=== PATIENT | female | born 1940 | race Caucasian/White ===

== ENCOUNTER → 2020-03-24 | Day surgery (SDC) | payer MEDICARE ==
[2020-03-20 12:01] LABS: BASOPHILS # (AUTO) 0.1 (0.0-0.1); BASOPHILS % 0.6 % (0.0-1.0); EOSINOPHILS # (AUTO) 0.2 (0.0-0.4); EOSINOPHILS % 2.5 % (0.0-6.0); HEMATOCRIT 42.3 % (34.2-44.1); HEMOGLOBIN 13.6 g/dL (12.0-16.0); LYMPHOCYTES # (AUTO) 1.9 (1.0-3.2); LYMPHOCYTES % 19.9 % (18.0-39.1); MEAN CORPUSCULAR HEMOGLOBIN 27.8 pg (28-32); MEAN CORPUSCULAR HGB CONC 32.2 g/dL (31-35); MEAN CORPUSCULAR VOLUME 86.3 fL (81-99); MONOCYTES # (AUTO) 0.7 (0.2-0.8); NEUTROPHILS # (AUTO) 6.5 (2.1-6.9); NEUTROPHILS % 69.8 % (38.7-80.0); PLATELET COUNT 293 x10e3/uL (140-360); RED CELL DISTRIBUTION WIDTH 13.7 % (11.7-14.4)
[2020-03-20 12:24] LABS: ALBUMIN 3.5 g/dL (3.5-5.0); ANION GAP 12.7 mmol/L (8-16); CALCIUM 10.2 mg/dL (8.4-10.2); CREATININE, SERUM 0.95 mg/dL (0.57-1.11); POTASSIUM 4.7 mmol/L (3.5-5.1)
[2020-03-24] VITALS (13 sets, daily range): BP systolic 131–180; BP diastolic 63–90
[~2020-03-24] MED LIST: ASPIRIN 325 MG TAB ONE; BIVALRIUDIN 250 MG/VIAL VIAL IV ONE; CRESTOR10 MG PO; FENTANYL CITRATE/PF 100MCG/2 ML INJ ONE; HEPARIN SOD/SOD CHLORIDE 2,000 ML ONE; HYDROCHLOROTHIA25 MG PO; IOPAMIDOL 370 MG/ML 200 ML INFUS..BTL INJ ONE; LIDOCAINE HCL 2% LOCAL 20 ML VIAL ONE; METFORMIN HCL500 MG PO; METOPROLOL SUCC25 MG PO; MIDAZOLAM HCL 2 MG/2 ML VIAL ONE; PRASUGREL 10 MG TAB ONE; QUINAPRIL HCL20 MG PO; SODIUM CHLORIDE 0.9% 1000ML 1,000 ML ONE; SODIUM CHLORIDE 0.9% 50ML 50 ML ONE; VERAPAMIL HCL 2.5 MG/ML 2 ML VIAL ONE
--- NOTE | 2020-03-24 08:45 | NUR ---
0763 ambulated to bathroom tolerated well w/o Cp or SOB Monitor remains in NSR Void qs back to baseline orientation. ds/rn
--- NOTE | 2020-03-24 15:15 | NUR ---
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 Bedside report received from SALOME Garcia. Identifierx2. Alert oriented and appropriate, PERRLA, respirations even and unlabored to room air. Pulses x4 extremities equal and strong. Pedal pulses PT/DP X4 and marked. Cap fill brisk < 3 sec. Rt TR band ok to decrease at 530pm No gross issues pain,pallor,pressure or dysthymia.Normal neuro vascular function. Skin warm and dry integrity appears D/I. IV 20g to left hand angio max infusing,via iv controller, presents healthy w/o s/s of infiltration or complaint. Abdomen soft and supple. pt offered toileting, denies need to urinate or defecate. No personal affects with patient. Family at bedside. Pt and family verbalizes understanding of POC. Currently w/o complaint of pain or need. ds/rn
--- NOTE | 2020-03-24 15:42 | Operative Report ---
DATE OF PROCEDURE: 03/24/2020 SURGEON: Fidel Combs MD INDICATIONS: Coronary artery disease, unstable angina, and abnormal stress test with anterior ischemia. PROCEDURES PERFORMED: 1. Left heart catheterization, selective coronary angiography. 2. PTCA and stent placement of the proximal left anterior descending artery. 3. Conscious sedation administration, hemodynamic and neurological monitoring and recovery by dairy and food laboratory assistant RN supervision by , 65 minutes. RECOMMENDATIONS: Dual antiplatelet therapy for at least 6 months. DESCRIPTION OF PROCEDURE: Access was obtained in the right radial artery. A 6-Georgian sheath was placed. Diagnostic coronary angiogram demonstrated patent calcified left main circumflex, mild disease right coronary artery, mid 50% long tubular lesion. Left anterior descending artery calcified, proximal 90% stenosis. LV end-diastolic pressure of 14. No gradient across the aortic valve on pullback. A decision was made to intervene on the left anterior descending artery. The patient received intravenous Angiomax, oral aspirin and prasugrel for anticoagulation. The left main was cannulated using an XB LAD 3.5, 6-Georgian guiding catheter. Short Runthrough wire was advanced across the lesion for support, predilatation with 2.5 mm balloon following which a single 2.75 x 16 mm Synergy stent was deployed at 22 atmospheres. Excellent end result, less than 10% residual stenosis, EDSON-3 flow. No complications. Right wrist wire and guide sheath removed. TR band applied. The patient discharged home the same day. Fidel Combs MD [facility] /[id number]
--- NOTE | 2020-03-24 17:29 | NUR ---
1730p 1730p -4c Removed No hematoma/bleeding noted with normal neurovascular function. 1745p -5cc Removed No hematoma/ bleeding noted with normal neurovascular function. 1800p -5cc Removed No hematoma/bleeding noted with normal neurovascular function. Air removal completed. Stasis achieved sterile 2x2,Tegaderm, Coban dressing No hematoma, bleeding noted with normal neurovascular function. Wrist splint in place. Pt instructed on POC. Mac/Rekha Addendum: 03/24/20 at 1748 by Ronda Crow RN 1730 Header TR band removal
--- NOTE | 2020-03-24 20:00 | NUR ---
2000pm [employer] OPERATOR RECOVERY DISCHARGE NURSING NOTE Pt meets DC criteria. Rt TRband site assessed for s/s of complication and presence of hematoma. Skin warm, dry, no discolor, and pulses present. IV removed from left hand. Distal tip appears intact. VS WNL. Pt denies pain, sob, or need at this time. Family at XBS. Review of discharge paperwork and follow up instructions. verbalized understanding. Pt to wheelchair and transported to front of hospital. Transferred to private vehicle under own strength w/o incident with DC paperwork in hand. - jacob/[email or web address]
== END | disposition home or self-care (01) ==
LOC: CATH LAB 12:15
PROVIDERS: ATTEND Internal Medicine Interventional Cardiology
DX: I25.110 Atherosclerotic heart disease of native coronary artery with unstable angina pectoris (principal); R94.39 Abnormal result of other cardiovascular function study; I11.0 Hypertensive heart disease with heart failure; I50.20 Unspecified systolic (congestive) heart failure; E78.00 Pure hypercholesterolemia, unspecified; E13.69 Other specified diabetes mellitus with other specified complication; Z01.812 Encounter for preprocedural laboratory examination; Z11.59 Encounter for screening for other viral diseases; Z79.84 Long term (current) use of oral hypoglycemic drugs; Z68.33 Body mass index [BMI] 33.0-33.9, adult; Z82.49 Family history of ischemic heart disease and other diseases of the circulatory system; Z83.3 Family history of diabetes mellitus
CPT/HCPCS: 93458; C9600; 36415; 80053; 85025; 87635; 92928; 99152; 99153; C1725; C1769; C1874; C1887; J0583; J2001; J2250; J3010; J7030; Q9967

== ENCOUNTER 2021-02-08 16:51 | Inpatient (IN) | payer MEDICARE, OTHER ==
[~2021-02-08] VITALS: Ht 157.5 cm; Wt 88.5 kg
[~2021-02-08 16:51] MED LIST changes: -ASPIRIN 325 MG TAB ONE; -BIVALRIUDIN 250 MG/VIAL VIAL IV ONE; -FENTANYL CITRATE/PF 100MCG/2 ML INJ ONE; -HEPARIN SOD/SOD CHLORIDE 2,000 ML ONE; -IOPAMIDOL 370 MG/ML 200 ML INFUS..BTL INJ ONE; -LIDOCAINE HCL 2% LOCAL 20 ML VIAL ONE; -MIDAZOLAM HCL 2 MG/2 ML VIAL ONE; -PRASUGREL 10 MG TAB ONE; -SODIUM CHLORIDE 0.9% 1000ML 1,000 ML ONE; -SODIUM CHLORIDE 0.9% 50ML 50 ML ONE; -VERAPAMIL HCL 2.5 MG/ML 2 ML VIAL ONE
[2021-02-08] MEDS ORDERED: DILTIAZEM HCL 5 MG/ML 5 ML VIAL IV STA ×3 (17:10→17:17)
[2021-02-08] MEDS ORDERED: DILTIAZEM HCL VIAL 5 ML ONE (17:18)
[2021-02-08 17:30] LABS: BASOPHILS # (AUTO) 0.1 (0.0-0.1); BASOPHILS % 0.6 % (0.0-1.0); EOSINOPHILS # (AUTO) 0.1 (0.0-0.4); HEMATOCRIT 38.9 % (34.2-44.1); LYMPHOCYTES # (AUTO) 1.7 (1.0-3.2); LYMPHOCYTES % 13.7 % (18.0-39.1); MEAN CORPUSCULAR HEMOGLOBIN 26.7 pg (28-32); MEAN CORPUSCULAR HGB CONC 30.8 g/dL (31-35); MEAN CORPUSCULAR VOLUME 86.6 fL (81-99); MONOCYTES # (AUTO) 1.1 (0.2-0.8); MONOCYTES % 8.9 % (4.4-11.3); NEUTROPHILS # (AUTO) 9.3 (2.1-6.9); NEUTROPHILS % 75.2 % (38.7-80.0); PLATELET COUNT 362 x10e3/uL (140-360); RED BLOOD COUNT 4.49 x10e6/uL (3.6-5.1); RED CELL DISTRIBUTION WIDTH 13.8 % (11.7-14.4)
[2021-02-08] MEDS ORDERED: AMIODARONE HCL 150MG 100 ML IV ONE (17:45)
[2021-02-08 17:54] LABS: ALBUMIN 2.9 g/dL (3.5-5.0); ALBUMIN/GLOBULIN RATIO 0.8 (0.8-2.0); CALCIUM 8.3 mg/dL (8.4-10.2); CREATININE, SERUM 0.96 mg/dL (0.57-1.11)
[2021-02-08] MEDS: METOPROLOL TARTRATE INJ 1 MG/ML VIAL IV PRN ×2 (19:12→19:28)
[2021-02-08 19:25] LABS: CLARITY,URINE CLEAR (CLEAR); COLOR,URINE YELLOW (YELLOW); KETONES,URINE NEGATIVE (NEGATIVE); LEUKOCYTE ESTERASE ,URINE NEGATIVE (NEGATIVE); NITRITE,URINE NEGATIVE (NEGATIVE); PROTEIN,URINE DIPSTICK NEGATIVE (NEGATIVE); URINE UROBILINOGEN 0.2 mg/dL (0.2 - 1)
[2021-02-08 19:40] LABS: RBC,URINE 0-5 /HPF (0-5)
[2021-02-08] MEDS ORDERED: METOPROLOL SUCCINATE 25 MG TAB XL PO ONE (20:15)
[2021-02-08 22:14] VITALS: BP 166/82
[2021-02-08] MEDS ORDERED: PLAVIX75 MG PO (22:49)
[2021-02-08] MEDS ORDERED: ASPIRIN81 MG PO (22:49)
[2021-02-08] MEDS ORDERED: VENTOLIN HFA18 GM INH (22:49)
[2021-02-08] MEDS ORDERED: FUROSEMIDE INJ 10 MG/ML 2 ML VIAL IV ONE (23:00)
[2021-02-08] MEDS: BENZONATATE 100 MG CAP PO PRN (23:26)
[2021-02-08 23:56] VITALS: BP 141/60
[2021-02-09] VITALS (9 sets, daily range): BP systolic 139–178; BP diastolic 60–89
[2021-02-09] MEDS ORDERED: CHLORASEPTIC SPRAY 177 ML BTL MM PRN (01:00)
[2021-02-09] MEDS ORDERED: HYDRALAZINE HCL 20 MG/ML VIAL IV PRN (01:00)
[2021-02-09] MEDS ORDERED: DOCUSATE SODIUM 100 MG CAP PO PRN (01:00)
[2021-02-09] MEDS ORDERED: POLYETHYLENE GLYCOL 3350 17 GM PACK PO PRN (01:00)
[2021-02-09] MEDS ORDERED: ONDANSETRON HCL INJ 2MG/ML 2ML 2 MG/ML VIAL IV PRN (01:00)
[2021-02-09] MEDS ORDERED: LIDOCAINE 4% PATCH TP PRN (01:00)
[2021-02-09] MEDS ORDERED: MELATONIN 5 MG TABLET PO PRN (01:00)
[2021-02-09] MEDS ORDERED: DEXTROSE 50% SYRINGE 50 ML IV PRN ×2 (01:00→16:30)
[2021-02-09] MEDS ORDERED: BENZONATATE 100 MG CAP PO PRN (01:00)
[2021-02-09] MEDS ORDERED: POTASSIUM CHLORIDE 20 MEQ TAB CR PO PRN (01:00)
[2021-02-09] MEDS ORDERED: DIPHENHYDRAMINE HCL 25 MG CAP PO PRN (01:00)
[2021-02-09 06:39] LABS: ANION GAP 15.4 mmol/L (8-16); CALCIUM 8.9 mg/dL (8.4-10.2); CREATININE, SERUM 0.91 mg/dL (0.57-1.11); POTASSIUM 3.4 mmol/L (3.5-5.1)
[2021-02-09 07:00] LABS: BASOPHILS # (AUTO) 0.1 (0.0-0.1); BASOPHILS % 0.5 % (0.0-1.0); EOSINOPHILS # (AUTO) 0.1 (0.0-0.4); EOSINOPHILS % 0.8 % (0.0-6.0); HEMATOCRIT 38.4 % (34.2-44.1); HEMOGLOBIN 11.9 g/dL (12.0-16.0); LYMPHOCYTES # (AUTO) 1.5 (1.0-3.2); LYMPHOCYTES % 14.9 % (18.0-39.1); MEAN CORPUSCULAR HEMOGLOBIN 26.8 pg (28-32); MEAN CORPUSCULAR VOLUME 86.5 fL (81-99); MONOCYTES # (AUTO) 0.7 (0.2-0.8); MONOCYTES % 7.5 % (4.4-11.3); NEUTROPHILS # (AUTO) 7.4 (2.1-6.9); NEUTROPHILS % 75.8 % (38.7-80.0); PLATELET COUNT 372 x10e3/uL (140-360); RED BLOOD COUNT 4.44 x10e6/uL (3.6-5.1); RED CELL DISTRIBUTION WIDTH 13.7 % (11.7-14.4)
[2021-02-09] MEDS: PANTOPRAZOLE SOD 40 MG TABEC PO SCH (08:40)
[2021-02-09] MEDS ORDERED: METOPROLOL SUCCINATE 25 MG TAB XL PO SCH (09:00)
[2021-02-09] MEDS: ALBUTEROL/IPRATROPIUM 3 ML NEB NEB PRN ×2 (11:11→19:35)
[2021-02-09] MEDS: DILTIAZEM HCL ER 120 MG CAP PO SCH (12:25)
[2021-02-09] MEDS ORDERED: METOPROLOL SUCCINATE 25 MG TAB XL PO ONE (12:30)
[2021-02-09] MEDS ORDERED: ALBUTEROL SULFATE HFA 8GM INHALATION AEROSOL INH PRN (16:15)
[2021-02-09] MEDS: INSULIN LISPRO 100 UNIT/1 ML 3ML VIAL SQ SCH ×2 (16:35→21:00)
[2021-02-09] MEDS ORDERED: IOPAMIDOL 370 MG/ML 200 ML INFUS..BTL INJ ONE (17:29)
[2021-02-09] MEDS ORDERED: SODIUM CHLORIDE 0.9% 50ML 50 ML ONE (17:29)
[2021-02-09] MEDS: APIXABAN 5 MG TABLET PO SCH (17:38)
[2021-02-09] MEDS: METOPROLOL TARTRATE INJ 1 MG/ML VIAL IV PRN (17:39)
[2021-02-09] MEDS: ACETAMINOPHEN 325 MG TAB PO PRN (19:12)
[2021-02-09] MEDS: FUROSEMIDE INJ 10 MG/ML 4 ML VIAL IV SCH (21:47)
[2021-02-09] MEDS: SIMVASTATIN 40 MG TAB PO SCH (21:47)
[2021-02-10] VITALS (11 sets, daily range): BP systolic 90–156; BP diastolic 60–103
[2021-02-10] MEDS: METOPROLOL TARTRATE INJ 1 MG/ML VIAL IV PRN (02:08)
[2021-02-10] MEDS: ALBUTEROL/IPRATROPIUM 3 ML NEB NEB PRN ×3 (02:20→19:08)
[2021-02-10 06:11] LABS: BASOPHILS # (AUTO) 0.1 (0.0-0.1); BASOPHILS % 0.7 % (0.0-1.0); EOSINOPHILS # (AUTO) 0.1 (0.0-0.4); EOSINOPHILS % 1.1 % (0.0-6.0); HEMATOCRIT 38.2 % (34.2-44.1); HEMOGLOBIN 12.1 g/dL (12.0-16.0); LYMPHOCYTES # (AUTO) 1.4 (1.0-3.2); LYMPHOCYTES % 11.8 % (18.0-39.1); MEAN CORPUSCULAR HEMOGLOBIN 27.1 pg (28-32); MEAN CORPUSCULAR HGB CONC 31.7 g/dL (31-35); MEAN CORPUSCULAR VOLUME 85.7 fL (81-99); MONOCYTES # (AUTO) 0.9 (0.2-0.8); MONOCYTES % 7.1 % (4.4-11.3); NEUTROPHILS # (AUTO) 9.5 (2.1-6.9); NEUTROPHILS % 78.7 % (38.7-80.0); PLATELET COUNT 437 x10e3/uL (140-360); RED BLOOD COUNT 4.46 x10e6/uL (3.6-5.1); RED CELL DISTRIBUTION WIDTH 13.6 % (11.7-14.4)
[2021-02-10 06:33] LABS: ANION GAP 16.7 mmol/L (8-16); CALCIUM 9.4 mg/dL (8.4-10.2); CREATININE, SERUM 1.03 mg/dL (0.57-1.11); POTASSIUM 3.7 mmol/L (3.5-5.1)
[2021-02-10] MEDS: QUINAPRIL HCL 20 MG TAB PO SCH (08:55)
[2021-02-10] MEDS: PANTOPRAZOLE SOD 40 MG TABEC PO SCH (08:55)
[2021-02-10] MEDS: APIXABAN 5 MG TABLET PO SCH (08:56)
[2021-02-10] MEDS: ASPIRIN 81 MG CHEW TAB PO SCH (08:56)
[2021-02-10] MEDS ORDERED: METOPROLOL SUCCINATE 50 MG TAB XL PO SCH (09:00)
[2021-02-10] MEDS ORDERED: CLOPIDOGREL BISULFATE 75 MG TAB PO SCH (09:00)
[2021-02-10] MEDS: HYDROCHLOROTHIAZIDE 25 MG TAB PO SCH (09:03)
[2021-02-10] MEDS: DILTIAZEM HCL ER 120 MG CAP PO SCH (09:03)
[2021-02-10] MEDS: FUROSEMIDE INJ 10 MG/ML 4 ML VIAL IV SCH (09:03)
[2021-02-10] MEDS: INSULIN LISPRO 100 UNIT/1 ML 3ML VIAL SQ SCH ×4 (09:40→21:00)
[2021-02-10] MEDS ORDERED: METOPROLOL TARTRATE INJ 1 MG/ML VIAL IV ONE (10:15)
[2021-02-10] MEDS ORDERED: METOPROLOL TARTRATE 25 MG TAB PO SCH (14:00)
[2021-02-10] MEDS: SODIUM CHLORIDE 0.9% 1000ML 1,000 ML IV SCH (17:29)
[2021-02-10] MEDS: SIMVASTATIN 40 MG TAB PO SCH (21:00)
[2021-02-10] MEDS: METOPROLOL TARTRATE 50 MG TAB PO SCH (22:00)
[2021-02-11] VITALS (8 sets, daily range): BP systolic 102–140; BP diastolic 61–86
[2021-02-11] MEDS: SODIUM CHLORIDE 0.9% 1000ML 1,000 ML IV SCH ×3 (01:00→17:00)
[2021-02-11] MEDS: METOPROLOL TARTRATE 50 MG TAB PO SCH ×3 (06:04→20:32)
[2021-02-11 06:18] LABS: BASOPHILS # (AUTO) 0.1 (0.0-0.1); BASOPHILS % 0.7 % (0.0-1.0); EOSINOPHILS # (AUTO) 0.2 (0.0-0.4); EOSINOPHILS % 1.1 % (0.0-6.0); HEMATOCRIT 39.8 % (34.2-44.1); HEMOGLOBIN 12.5 g/dL (12.0-16.0); LYMPHOCYTES # (AUTO) 1.6 (1.0-3.2); LYMPHOCYTES % 12.3 % (18.0-39.1); MEAN CORPUSCULAR HEMOGLOBIN 27.1 pg (28-32); MEAN CORPUSCULAR HGB CONC 31.4 g/dL (31-35); MEAN CORPUSCULAR VOLUME 86.3 fL (81-99); MONOCYTES # (AUTO) 0.8 (0.2-0.8); MONOCYTES % 6.1 % (4.4-11.3); NEUTROPHILS # (AUTO) 10.5 (2.1-6.9); PLATELET COUNT 407 x10e3/uL (140-360); RED BLOOD COUNT 4.61 x10e6/uL (3.6-5.1); RED CELL DISTRIBUTION WIDTH 13.8 % (11.7-14.4)
[2021-02-11 06:52] LABS: ANION GAP 14.8 mmol/L (8-16); CALCIUM 8.8 mg/dL (8.4-10.2); CREATININE, SERUM 1.06 mg/dL (0.57-1.11); POTASSIUM 3.8 mmol/L (3.5-5.1)
[2021-02-11] MEDS: ALBUTEROL/IPRATROPIUM 3 ML NEB NEB PRN ×2 (07:25→14:05)
[2021-02-11] MEDS: QUINAPRIL HCL 20 MG TAB PO SCH (08:40)
[2021-02-11] MEDS: PANTOPRAZOLE SOD 40 MG TABEC PO SCH (08:40)
[2021-02-11] MEDS: DILTIAZEM HCL ER 120 MG CAP PO SCH (08:40)
[2021-02-11] MEDS: HYDROCHLOROTHIAZIDE 25 MG TAB PO SCH (08:40)
[2021-02-11] MEDS: ASPIRIN 81 MG CHEW TAB PO SCH (08:40)
[2021-02-11] MEDS: INSULIN LISPRO 100 UNIT/1 ML 3ML VIAL SQ SCH ×4 (10:44→20:34)
[2021-02-11] MEDS: ACETAMINOPHEN 325 MG TAB PO PRN (11:58)
[2021-02-11] MEDS: BENZONATATE 100 MG CAP PO PRN (20:32)
[2021-02-11] MEDS: SIMVASTATIN 40 MG TAB PO SCH (20:32)
[2021-02-12] VITALS (7 sets, daily range): BP systolic 113–177; BP diastolic 63–85
[2021-02-12] MEDS: SODIUM CHLORIDE 0.9% 1000ML 1,000 ML IV SCH (01:15)
[2021-02-12] MEDS: BENZONATATE 100 MG CAP PO PRN (03:11)
[2021-02-12 06:16] LABS: BASOPHILS # (AUTO) 0.1 (0.0-0.1); BASOPHILS % 0.8 % (0.0-1.0); EOSINOPHILS # (AUTO) 0.1 (0.0-0.4); EOSINOPHILS % 1.2 % (0.0-6.0); HEMATOCRIT 38.6 % (34.2-44.1); HEMOGLOBIN 11.8 g/dL (12.0-16.0); LYMPHOCYTES # (AUTO) 1.2 (1.0-3.2); LYMPHOCYTES % 13.3 % (18.0-39.1); MEAN CORPUSCULAR HEMOGLOBIN 27.3 pg (28-32); MEAN CORPUSCULAR HGB CONC 30.6 g/dL (31-35); MEAN CORPUSCULAR VOLUME 89.1 fL (81-99); MONOCYTES # (AUTO) 0.5 (0.2-0.8); MONOCYTES % 5.7 % (4.4-11.3); NEUTROPHILS # (AUTO) 6.9 (2.1-6.9); NEUTROPHILS % 78.5 % (38.7-80.0); PLATELET COUNT 223 x10e3/uL (140-360); RED BLOOD COUNT 4.33 x10e6/uL (3.6-5.1); RED CELL DISTRIBUTION WIDTH 13.7 % (11.7-14.4)
[2021-02-12] MEDS: INSULIN LISPRO 100 UNIT/1 ML 3ML VIAL SQ SCH ×2 (07:30→12:15)
[2021-02-12 08:07] LABS: ANION GAP 14.3 mmol/L (8-16); CALCIUM 8.2 mg/dL (8.4-10.2); CREATININE, SERUM 0.96 mg/dL (0.57-1.11); POTASSIUM 4.3 mmol/L (3.5-5.1)
[2021-02-12] MEDS: PANTOPRAZOLE SOD 40 MG TABEC PO SCH (08:09)
[2021-02-12] MEDS: HYDROCHLOROTHIAZIDE 25 MG TAB PO SCH (08:09)
[2021-02-12] MEDS: QUINAPRIL HCL 20 MG TAB PO SCH (08:09)
[2021-02-12] MEDS: DILTIAZEM HCL ER 120 MG CAP PO SCH (08:16)
[2021-02-12] MEDS ORDERED: ONDANSETRON HCL 4 MG ORAL DISINTEGRATING TAB PO PRN (08:30)
[2021-02-12] MEDS ORDERED: METOPROLOL SUCCINATE 25 MG TAB XL PO SCH (09:00)
[2021-02-12] MEDS ORDERED: APIXABAN 5 MG TABLET PO SCH (17:00)
[2021-02-12] MEDS ORDERED: SODIUM CHLORIDE 0.9% 1000ML 1,000 ML IV SCH (17:00)
[2021-02-12] MEDS ORDERED: AMIODARONE HCL 200 MG TAB PO SCH (22:00)
== END 2021-02-12 18:05 | disposition home or self-care (01) | DRG 308 ==
LOC: ER 17:38 → ERHOLD 20:26 → MED/SURG3 22:06
PROVIDERS: ADMIT Internal Medicine; ATTEND Internal Medicine
DX: I48.0 Paroxysmal atrial fibrillation (principal); J96.01 Acute respiratory failure with hypoxia; I10 Essential (primary) hypertension; E11.9 Type 2 diabetes mellitus without complications; E78.5 Hyperlipidemia, unspecified; Z79.01 Long term (current) use of anticoagulants; K46.9 Unspecified abdominal hernia without obstruction or gangrene; I25.10 Atherosclerotic heart disease of native coronary artery without angina pectoris; Z95.5 Presence of coronary angioplasty implant and graft; R91.8 Other nonspecific abnormal finding of lung field; Z20.822 Contact with and (suspected) exposure to COVID-19
CPT/HCPCS: 36415; 71045; 71260; 80048; 80053; 81001; 82948; 83880; 84484; 85025; 93005; 93306; 94640; 99251; 99285; J1940; J2405; J7030; Q9967; U0002

== ENCOUNTER 2021-02-27 17:47 | Emergency (ER) | payer OTHER ==
[~2021-02-27] VITALS: Ht 157.5 cm; Wt 88.5 kg
[~2021-02-27 17:47] MED LIST changes: +ASPIRIN81 MG PO; +PLAVIX75 MG PO; +VENTOLIN HFA18 GM INH
[2021-02-27 18:45] LABS: BASOPHILS # (AUTO) 0.1 (0.0-0.1); EOSINOPHILS # (AUTO) 0.2 (0.0-0.4); EOSINOPHILS % 1.8 % (0.0-6.0); HEMATOCRIT 41.7 % (34.2-44.1); HEMOGLOBIN 13.2 g/dL (12.0-16.0); LYMPHOCYTES # (AUTO) 1.2 (1.0-3.2); MEAN CORPUSCULAR HGB CONC 31.7 g/dL (31-35); MEAN CORPUSCULAR VOLUME 85.3 fL (81-99); MONOCYTES # (AUTO) 0.6 (0.2-0.8); MONOCYTES % 7.1 % (4.4-11.3); NEUTROPHILS # (AUTO) 6.2 (2.1-6.9); NEUTROPHILS % 74.7 % (38.7-80.0); PLATELET COUNT 413 x10e3/uL (140-360); RED BLOOD COUNT 4.89 x10e6/uL (3.6-5.1); RED CELL DISTRIBUTION WIDTH 14.6 % (11.7-14.4)
[2021-02-27 19:07] LABS: ALBUMIN 3.4 g/dL (3.5-5.0); ALBUMIN/GLOBULIN RATIO 0.9 (0.8-2.0); ANION GAP 19.7 mmol/L (8-16); CALCIUM 8.9 mg/dL (8.4-10.2); POTASSIUM 3.7 mmol/L (3.5-5.1)
[2021-02-27 19:14] LABS: CREATINE KINASE MB 1.6 ng/mL (0-5.0)
[2021-02-27 20:31] VITALS: BP 134/78
== END 2021-02-27 20:32 | disposition home or self-care (01) ==
LOC: ER 18:15
DX: I10 Essential (primary) hypertension (principal); R51.9 Headache, unspecified; E11.9 Type 2 diabetes mellitus without complications; E78.5 Hyperlipidemia, unspecified; Z95.5 Presence of coronary angioplasty implant and graft
CPT/HCPCS: 36415; 70450; 80053; 82550; 82553; 84484; 85025; 93005; 99283

== ENCOUNTER → 2021-05-04 | Outpatient (CLI) | payer OTHER ==
[~2021-05-04] MED LIST changes: +REGADENOSON 0.4 MG/5 ML SYR IV ONE
== END ==
LOC: NM 11:24
PROVIDERS: ATTEND Nurse Practitioner Family
DX: I20.8 Other forms of angina pectoris (principal)
CPT/HCPCS: 78452; 93017; A9502; J2785